=== PATIENT | female | born 1950 | race Caucasian/White ===

== ENCOUNTER 2023-07-17 07:42 | Outpatient (CLI) | payer BC, SELFPAY | END 2023-07-17 07:43 | disposition home or self-care (01) | LOC: NFLDREF 07-20 06:44 | PROVIDERS: PCP Family Medicine; Referring Provider Family Medicine; Visit Provider Family Medicine | DX: Z00.00 Encounter for general adult medical examination without abnormal findings (principal); E11.9 Type 2 diabetes mellitus without complications; I10 Essential (primary) hypertension; E66.01 Morbid (severe) obesity due to excess calories; Z13.6 Encounter for screening for cardiovascular disorders | CPT/HCPCS: 80053; 80061; 82043; 82570 ==

== ENCOUNTER 2023-07-18 07:18 | Outpatient (CLI) | payer BC, SELFPAY | END 2023-07-18 07:19 | disposition home or self-care (01) | LOC: NFLDREF 07-20 09:16 | PROVIDERS: PCP Family Medicine; Referring Provider Family Medicine; Visit Provider Family Medicine | DX: Z00.00 Encounter for general adult medical examination without abnormal findings (principal); E11.9 Type 2 diabetes mellitus without complications; I10 Essential (primary) hypertension; E66.01 Morbid (severe) obesity due to excess calories | CPT/HCPCS: 82043; 82570 ==

== ENCOUNTER 2023-08-09 07:28 | Outpatient (CLI) | payer BC, MEDICARE, SELFPAY | END 2023-08-09 07:29 | disposition home or self-care (01) | LOC: NFLDREF 08-10 22:14 | PROVIDERS: PCP Family Medicine; Referring Provider Family Medicine; Visit Provider Family Medicine | DX: I10 Essential (primary) hypertension (principal) | CPT/HCPCS: 80048 ==

== ENCOUNTER 2023-09-11 06:46 | Outpatient (CLI) | payer BC, SELFPAY ==
--- NOTE | 2023-09-11 08:28 | P.ANES_ITS ---
Anesthesia Charges Start Date/Time Anesthesia Start Date: 09/11/23 Anesthesia Start Time: 08:05 Stop Date/Time Anesthesia Stop Date: 09/11/23 Anesthesia Stop Time: 08:28 Summary Extremes of Age - Over 70 or under 1: [employer]
--- NOTE | 2023-09-11 11:50 | W.ANESCHARGE ---
Anesthesia Charges Start Date/Time Anesthesia Start Date: 09/11/23 Anesthesia Start Time: 08:05 Stop Date/Time Anesthesia Stop Date: 09/11/23 Anesthesia Stop Time: 08:28 Summary Extremes of Age - Over 70 or under 1: MDA
== END 2023-09-11 06:47 | disposition home or self-care (01) ==
LOC: OP CLINIC 06:47
PROVIDERS: PCP Family Medicine; Visit Provider Internal Medicine
DX: Z12.11 Encounter for screening for malignant neoplasm of colon (principal); D12.2 Benign neoplasm of ascending colon; K64.8 Other hemorrhoids
CPT/HCPCS: 00811; 00812; 45380; 88305; 99100; J2704

== ENCOUNTER 2023-09-20 14:39 | Outpatient (CLI) | payer BC, SELFPAY ==
--- NOTE | 2023-09-20 15:00 | CRLHL7_ITS ---
For Patients: As a result of the Century Cures Act, medical imaging exams and procedure reports are released immediately into your electronic medical record. You may view this report before your referring provider. If you have questions, please contact your health care provider. DXA BONE MINERAL DENSITY STUDY Current height (in): 64.0. Weight (lb): 245.0. Menopause age: 56. Ethnicity: White. Reason for exam: Screening. Asymptomatic menopausal state. 1. Have you had a previous hip or vertebral fracture? No. 2. Have you had any fractures during your adult life which did not result from significant trauma (e.g., auto accident)? No. 3. Did either of your parents have a hip fracture? No. 4. Do you smoke? No. 5. Have you ever taken Glucocorticoids? No. 6. Do you have rheumatoid arthritis? No. 7. Do you have secondary osteoporosis? No. 8. Do you drink 3 or more alcoholic drinks per day? No. 9. Are you being treated for osteoporosis? No. 10. Have you ever taken any of the following medications: Actonel, Evista, Fosamax, Miacalcin, Reclast, Boniva, Forteo, HRT (i.e. estrogen/hormone therapy), Protelos, Prolia, Vitamin D, Calcium, other ??? please specify. ANSWER: Yes, vitamin D. 11. Do you have any of the following medical conditions: Anorexia or bulimia, asthma or emphysema, end stage renal disease, hyperparathyroidism, any seizure disorders, cancer, inflammatory bowel diseases, hysterectomy, other ??? please specify. ANSWER: Yes, asthma or emphysema. 12. What was your maximum height (inches)? 64. 13. Do you perform weight bearing exercise regularly? No. 14. Do you regularly consume dairy products? Yes. 15. Do you drink caffeinated beverages? Yes. 16. At what age did your period start? 15. 17. Are you premenopausal? No. 18. How many full term pregnancies have you had? 2. 19. Have you ever missed your period for more than 6 months in a row (not including or menopause)? No. TECHNIQUE: Bone mineral density study was performed using the [employer]. FINDINGS: The results of the study expressed as bone mineral density (BMD) are as follows: Lumbar spine L1 to L4: BMD: 0.859 g/cm2. T-score: -1.7. Z-score: 0.5 Neck Left: BMD: 0.642 g/cm2. T-score: -1.9. Z-score: 0.1 Right: BMD: 0.533 g/cm2. T-score: -2.8. Z-score: -0.9 Total Left: BMD: 0.836 g/cm2. T-score: -0.9. Z-score: 0.8 Right: BMD: 0.786 g/cm2. T-score: -1.3. Z-score: 0.4 IMPRESSION: Osteoporosis. Thor Dempsey M.D. Diagnostic Radiologist [email or web address] Transcribed: 3:04 pm DW/Dictated by: Thor Dempsey MD @ 09/26/2023 12:24:00 PM (Electronically Signed)
== END 2023-09-20 14:40 | disposition home or self-care (01) ==
PROVIDERS: PCP Family Medicine; Visit Provider Family Medicine
DX: Z13.820 Encounter for screening for osteoporosis (principal); M81.0 Age-related osteoporosis without current pathological fracture; Z78.0 Asymptomatic menopausal state
CPT/HCPCS: 77080

== ENCOUNTER 2023-10-17 08:45 | Outpatient (CLI) | payer BC, SELFPAY ==
--- NOTE | 2023-10-17 09:15 | CRLHL7_ITS ---
For Patients: As a result of the Century Cures Act, medical imaging exams and procedure reports are released immediately into your electronic medical record. You may view this report before your referring provider. If you have questions, please contact your health care provider. BILATERAL SCREENING MAMMOGRAM WITH COMPUTER-AIDED DETECTION AND TOMOSYNTHESIS TECHNIQUE: CC and MLO views were obtained. These mammographic images have been obtained using full-field digital technique. These mammographic images were interpreted with the benefit of computer-aided detection. Breast Tomosynthesis was used in this interpretation. COMPARISON FILM: 06/23/21. FINDINGS: There are scattered areas of fibroglandular density IMPRESSION: There is no radiographic evidence for malignancy. ASSESSMENT: BI-RADS Category 1: Negative RECOMMENDATION: Routine screening mammogram in 1 year. A lay language report of this examination will be provided to the patient. Thor Dempsey M.D. Diagnostic Radiologist [email or web address] ANTONIETA/Dictated by: Thor Dempsey MD @ 10/19/2023 1:09:00 PM (Electronically Signed)
== END 2023-10-17 08:46 | disposition home or self-care (01) ==
PROVIDERS: PCP Family Medicine; Visit Provider Family Medicine
DX: Z12.31 Encounter for screening mammogram for malignant neoplasm of breast (principal)
CPT/HCPCS: 77063; 77067

== ENCOUNTER 2023-11-15 07:28 | Outpatient (CLI) | payer BC, SELFPAY | END 2023-11-15 07:29 | disposition home or self-care (01) | LOC: NFLDREF 16:02 | PROVIDERS: PCP Family Medicine; Referring Provider Family Medicine; Visit Provider Family Medicine | DX: E11.9 Type 2 diabetes mellitus without complications (principal); I10 Essential (primary) hypertension; M81.0 Age-related osteoporosis without current pathological fracture; E78.5 Hyperlipidemia, unspecified | CPT/HCPCS: 80053; 80061; 82043; 82306; 82570 ==